=== PATIENT | female | born 1945 | race American Indian/Alaskan Native ===

== ENCOUNTER 2016-10-12 17:42 | Emergency (ER) | payer MEDICARE ==
[2016-10-12 19:58] LABS: Basophils % (Auto) 0.6 % (0.0-1.8); Hematocrit 29.9 % (30.3-42.9); Hemoglobin 10.2 gm/dl (10.1-14.3); Mean Corpuscular HGB Conc 34 % (30-34); Mean Corpuscular Hemoglobin 32 pg (28-32); Mean Corpuscular Volume 93 fl (79-97); Platelet Count 223 K/mm3 (140-440); Red Blood Count 3.21 M/mm3 (3.65-5.03); Red Cell Distribution Width 15.3 % (13.2-15.2); White Blood Count 9.3 K/mm3 (4.5-11.0)
--- NOTE | 2016-10-12 20:06 | Emergency Department Report ---
ED General Adult HPI - General Chief complaint: Weakness Stated complaint: WEAKNESS Time Seen by Provider: 10/12/16 19:35 Source: patient, EMS Mode of arrival: Stretcher Limitations: Altered Mental Status, Other - History of Present Illness Initial comments: Patient is a 71-year-old female with history of hypertension, hyperlipidemia, diabetes, atrial fibrillation, coronary artery disease status post stents, COPD former smoker, ppm presenting today because of generalized weakness and multiple falls. Patient stated that she has been having falls multiple times over the last couple months. She fell times today. States that she didn't pass out and she was walking from the kitchen to the living room but she does not recall the actual fall or what could've caused it. She denies any chest pain, shortness breath, palpitations. Has multiple bruises including on her right [place], left back, abdomen, lower extremities. Severity scale (0 -10): 0 - Related Data Previous Rx's Medication Instructions Recorded Last Taken Type Acetaminophen [Acetaminophen TAB] 650 mg PO Q4H PRN #10 tablet 09/08/16 1 Day Ago Rx 650 Apixaban [Eliquis] 5 mg PO BID #60 tablet 09/08/16 1 Day Ago Rx 5 Aspirin [Aspirin BABY CHEW TAB] 81 mg PO QDAY #30 tab.chew 09/08/16 1 Day Ago Rx 81 Bupropion HCl [Wellbutrin SR] 100 mg PO BID #60 09/08/16 1 Day Ago Rx 100 Clopidogrel [Plavix] 75 mg PO QDAY #30 09/08/16 1 Day Ago Rx 75 Ipratropium/Albuterol Sulfate 1 spray IH QID PRN #30 09/08/16 1 Day Ago Rx [Combivent Respimat] 4 Metoprolol [Lopressor TAB] 50 mg PO BID #60 tablet 09/08/16 1 Day Ago Rx 50 Oxybutynin Chloride [Oxybutynin 5 mg PO BID #30 09/08/16 1 Day Ago Rx Chloride ER] 5 Simvastatin [Zocor TAB] 20 mg PO QHS #30 tablet 09/08/16 1 Day Ago Rx 20 metFORMIN [Glucophage] 500 mg PO BID #60 09/08/16 1 Day Ago Rx 500 Acetaminophen 650 mg PO BID #20 capsule 10/12/16 Unknown Rx Nitrofurantoin [place]/M-Cryst 100 mg PO Q12HR #10 capsule 10/12/16 Unknown Rx [Macrobid CAP] Allergies Allergy/AdvReac Type Severity Reaction Status Date / Time chocolate flavor Allergy Unknown Verified 10/12/16 19:39 ED Review of Systems ROS: Stated complaint: WEAKNESS Other details as noted in HPI Comment: All other systems reviewed and negative Constitutional: denies: chills, diaphoresis, fever Respiratory: denies: cough Cardiovascular: denies: chest pain Genitourinary: denies: dysuria Skin: denies: rash Neurological: denies: headache Psychiatric: denies: anxiety ED Past Medical Hx - Past Medical History Previous Medical History?: Yes Hx Hypertension: Yes Hx Diabetes: Yes Hx Pulmonary Embolism: Yes (2016) Additional medical history: HIGH CHOLESTEROL, atrial flutter - Surgical History Past Surgical History?: Yes Additional Surgical History: hysterectomy - Social History Smoking Status: Former Smoker Substance Use Type: None - Medications Home Medications: Home Medications Medication Instructions Recorded Confirmed Last Taken Type Acetaminophen [Acetaminophen TAB] 650 mg PO Q4H PRN #10 tablet 09/08/16 1 Day Ago Rx 650 Apixaban [Eliquis] 5 mg PO BID #60 tablet 09/08/16 10/12/16 1 Day Ago Rx 5 Aspirin [Aspirin BABY CHEW TAB] 81 mg PO QDAY #30 tab.chew 09/08/16 10/12/16 1 Day Ago Rx 81 Bupropion HCl [Wellbutrin SR] 100 mg PO BID #60 09/08/16 10/12/16 1 Day Ago Rx 100 Clopidogrel [Plavix] 75 mg PO QDAY #30 09/08/16 10/12/16 1 Day Ago Rx 75 Ipratropium/Albuterol Sulfate 1 spray IH QID PRN #30 09/08/16 10/12/16 1 Day Ago Rx [Combivent Respimat] 4 Metoprolol [Lopressor TAB] 50 mg PO BID #60 tablet 09/08/16 10/12/16 1 Day Ago Rx 50 Oxybutynin Chloride [Oxybutynin 5 mg PO BID #30 09/08/16 10/12/16 1 Day Ago Rx Chloride ER] 5 Simvastatin [Zocor TAB] 20 mg PO QHS #30 tablet 09/08/16 10/12/16 1 Day Ago Rx 20 metFORMIN [Glucophage] 500 mg PO BID #60 09/08/16 10/12/16 1 Day Ago Rx 500 Acetaminophen 650 mg PO BID #20 capsule 10/12/16 Unknown Rx Nitrofurantoin [place]/M-Cryst 100 mg PO Q12HR #10 capsule 10/12/16 Unknown Rx [Macrobid CAP] ED Physical Exam - General Limitations: Altered Mental Status, Other - Head Head exam: Present: other (ecchymosis to right chin, no nasal septal hematoma) - Eye Eye exam: Present: normal appearance, PERRL, EOMI - Neck Neck exam: Present: other (no midline tenderness, Nexus criteria negative) - Respiratory Respiratory exam: Present: normal lung sounds bilaterally. Absent: respiratory distress, chest wall tenderness - Cardiovascular Cardiovascular Exam: Present: regular rate, normal rhythm - GI/Abdominal GI/Abdominal exam: Present: soft. Absent: distended, tenderness - Extremities Exam Extremities exam: Present: other (ecchymosis over both knees and left anterior lower leg, no pitting edema) - Neurological Exam Neurological exam: Present: alert. Absent: motor sensory deficit - Skin Skin exam: Present: intact ED Course Vital Signs 10/12/16 10/12/16 10/12/16 18:25 18:50 19:20 Temperature 98.1 F 98.4 F Pulse Rate 65 61 68 Respiratory 18 Rate Blood Pressure 118/71 [Right] O2 Sat by Pulse 97 98 Oximetry 10/12/16 10/12/16 10/12/16 19:22 20:33 22:00 Temperature Pulse Rate 68 81 Respiratory 16 18 18 Rate Blood Pressure 120/74 120/69 [Right] O2 Sat by Pulse 98 97 96 Oximetry ED Medical Decision Making - Lab Data Result diagrams: 10/12/16 19:30 10/12/16 18:57 - Medical Decision Making No clear etiology for the patient's multiple falls. Syncope is a possibility however this is less acutely concerning given that the fact the patient has a pacemaker installed. Will to head CT, chest x-ray to look for any traumatic injuries. Labs to rule out any clear cause of the generalized weakness. EKG shows a chaotic baseline, paced rhythm, no ST-T changes Chest x-ray shows no tooth abnormality, no pneumothorax, no effusion CT head negative Labs show a mildly elevated CK, IV fluids ordered Workup here revealed no acute significant acute abnormalities Patient's vital signs are stable here To the patient that she may need to start using a walker. I also inquired as to her primary care doctor, she is able to see them in the next couple days, I told her to bring up her multiple falls and bruising with them as she met with our physical therapy may have to transition to walk maybe even wheelchair. Patient agrees with the plan of going home and seeing her primary doctor. Critical care attestation.: If time is entered above; I have spent that time in minutes in the direct care of this critically ill patient, excluding procedure time. ED Disposition Clinical Impression: Fall Qualifiers: Encounter type: initial encounter Qualified Code(s): W19.XXXA - Unspecified fall, initial encounter Disposition: DISCHARGED TO HOME OR SELFCARE Is pt being admited?: No Does the pt Need Aspirin: No Condition: Stable Instructions: Fall Prevention for Older Adults (ED) Additional Instructions: Please follow up with your primary care doctor in the next 3-5 days. Bring up the fact that you have had multiple falls and evidence of bruising all over her body. Return to the emergency room a few fall and hit her head, have severe pain or develop any new symptoms. Prescriptions: Acetaminophen 650 mg PO BID #20 capsule Nitrofurantoin [place]/M-Cryst [Macrobid CAP] 100 mg PO Q12HR #10 capsule Referrals: PRIMARY CARE, [Primary Care Provider] - 3-5 Days
[2016-10-12 20:08] LABS: INR 1.59 (0.87-1.13)
[2016-10-12 20:09] LABS: Partial Thromboplastin Time 30.7 Sec. (24.2-36.6)
[2016-10-12 20:52] LABS: Creatine Kinase MB 13.5 ng/mL (0.0-4.0)
[2016-10-12 20:53] LABS: BUN/Creatinine Ratio 16.25; Blood Urea Nitrogen 13 mg/dL (7-17); Calcium 8.9 mg/dL (8.4-10.2); Carbon Dioxide 29 mmol/L (22-30); Chloride 98.1 mmol/L (98-107); Creatine Kinase 1519 units/L (30-135); Glucose 101 mg/dL (65-100); Potassium 3.8 mmol/L (3.6-5.0); Sodium 139 mmol/L (137-145)
[2016-10-12 20:55] LABS: Anion Gap 16 mmol/L
--- NOTE | 2016-10-12 21:17 | Cat Scan Report ---
FINAL REPORT EXAM: CT HEAD/BRAIN WO CON HISTORY: Weakness TECHNIQUE: CT head without contrast PRIORS: None. FINDINGS: No acute intra-axial or extra-axial hemorrhage is identified. There is no evidence of midline shift or mass effect. The ventricles and sulci are within normal limits. Sung-white matter differentiation is intact. No acute parenchymal abnormalities seen. There are patchy and confluent hypodensities within the supratentorial white matter. Bony calvarium is grossly intact. Visualized portions of the mastoids and paranasal sinuses are unremarkable. IMPRESSION: Chronic small vessel white matter ischemic change
[2016-10-12] MEDS ORDERED: NACL 0.9% 1000 ML 1,000 ML IV ONE (22:46)
[2016-10-12 22:50] LABS: Bacteria,Urine 1+ /HPF (Negative); Bilirubin,Urine NEG (Negative); Blood,Urine SM (Negative); Ketones,Urine NEG (Negative); Leukocyte Esterase,Urine TR (Negative); Mucus,Urine FEW /HPF; Nitrite,Urine NEG (Negative); Protein,Urine <15 mg/dL mg/dL (Negative)
[2016-10-13 06:22] VITALS: BP 124/62
--- NOTE | 2016-10-13 12:05 | XRay Report ---
AP CHEST X-RAY: FINDINGS: There is borderline heart size with central vascular congestion which has developed since the previous study on September 14. There is no pleural fluid. No focal infiltrates are seen. The cardiac pacemaker is noted. IMPRESSION: Borderline cardiomegaly with central vascular congestion.
== END 2016-10-13 03:30 | disposition home or self-care (01) ==
LOC: ED 17:42
DX: S80.02XA Contusion of left knee, initial encounter (principal); S80.01XA Contusion of right knee, initial encounter; R53.1 Weakness; I10 Essential (primary) hypertension; E11.9 Type 2 diabetes mellitus without complications; I26.99 Other pulmonary embolism without acute cor pulmonale; E78.00 Pure hypercholesterolemia, unspecified; Z87.891 Personal history of nicotine dependence; Z79.82 Long term (current) use of aspirin; Z79.01 Long term (current) use of anticoagulants; Z91.018 Allergy to other foods; W19.XXXA Unspecified fall, initial encounter; Z91.81 History of falling; Y93.01 Activity, walking, marching and hiking; Y99.9 Unspecified external cause status; Y92.098 Other place in other non-institutional residence as the place of occurrence of the external cause
CPT/HCPCS: 36415; 70450; 71010; 80048; 81001; 82550; 82553; 84484; 85025; 85610; 85730; 93005; 93010; 96360; 96361; 99285; J7030

== ENCOUNTER 2017-04-26 15:04 | Outpatient (CLI) | payer MEDICARE ==
--- NOTE | 2017-04-26 16:07 | Cat Scan Report ---
CT head without contrast: CVA. Unenhanced axial images demonstrate decreased periventricular white matter change bilaterally. The middle cerebral arteries bilaterally are diffusely denser than expected. No focal parenchymal lesions identified. Mild peripheral atrophy present. Compared to prior examination on October 12, 2016 the findings appear unchanged except for the slightly denser middle cerebral arteries. The visualized bone and paranasal sinuses are unremarkable. Impressions: 1. Senescent changes. 2. The significance of the slightly denser middle cerebral vessels is unclear in view of the diffuse and symmetrical findings.
== END 2017-04-26 15:05 | disposition home or self-care (01) ==
LOC: CT 15:04
PROVIDERS: ATTEND Psychiatry & Neurology Neurology
DX: I63.512 Cerebral infarction due to unspecified occlusion or stenosis of left middle cerebral artery (principal); G31.89 Other specified degenerative diseases of nervous system; I10 Essential (primary) hypertension; I48.91 Unspecified atrial fibrillation; E78.00 Pure hypercholesterolemia, unspecified; F32.9 Major depressive disorder, single episode, unspecified; E11.9 Type 2 diabetes mellitus without complications; J44.9 Chronic obstructive pulmonary disease, unspecified
CPT/HCPCS: 70450

== ENCOUNTER 2018-09-30 15:11 | Emergency (ER) | payer MEDICARE ==
[2018-09-30 15:24] VITALS: BP 151/98
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
--- NOTE | 2018-09-30 18:24 | XRay Report ---
FINAL REPORT EXAM: XR ELBOW 3+V RT HISTORY: pain and swelling TECHNIQUE: 3 views of the right elbow PRIORS: 10/20/2016 FINDINGS: Medial degenerative articular surface irregularity and joint space narrowing again noted. Dorsal olec ranon degenerative enthesopathy is small. No radiographically visible acute fracture, dislocation, or joint effusion. IMPRESSION: No radiographically visible acute skeletal pathology
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
== END 2018-09-30 21:06 | disposition home or self-care (01) ==
LOC: ED 15:11
DX: S46.911A Strain of unspecified muscle, fascia and tendon at shoulder and upper arm level, right arm, initial encounter (principal); S40.021A Contusion of right upper arm, initial encounter; I10 Essential (primary) hypertension; E11.9 Type 2 diabetes mellitus without complications; E78.00 Pure hypercholesterolemia, unspecified; Z95.1 Presence of aortocoronary bypass graft; Z90.710 Acquired absence of both cervix and uterus; Z79.82 Long term (current) use of aspirin; Z91.018 Allergy to other foods
CPT/HCPCS: 99283